=== PATIENT | female | born 1955 | race Caucasian/White ===

== ENCOUNTER → 2016-12-27 | Day surgery (SDC) | payer BC ==
[~2016-12-27] MED LIST: ATOR20TA15 PO; FOSI20TA PO; HYDR50TA3 PO; LACTATED RINGER'S 1000 ML INJ 1,000 ML ONE; LEXA10TA PO; METF1000 PO; PERC7.5T13 PO; POTA-163 PO; PROPOFOL 500 MG/50 ML BTL IV ONE; SITA25 PO
--- NOTE | 2016-12-27 09:39 | GIPROC ---
[facility] [address] [facility], [address] COLONOSCOPY PROCEDURE REPORT EXAM DATE: 12/27/2016 PATIENT NAME: Carol Mcnulty MR #: [id number] BIRTHDATE: 1955 ENDOSCOPIST: Deven Washburn MD ORDER #: [id number] [employer] TIME SALES SUPERVISOR: Ernestina Bruno RN STATUS: outpatient INDICATIONS: The patient is a 61 yr old female here for a colonoscopy due to high risk patient with personal history of colonic polyps, patient's immediate family history of colon cancer, and unexplained diarrhea PROCEDURE PERFORMED: Colonoscopy with polypectomy Colonoscopy with biopsy MEDICATIONS: None and Per Anesthesia. PREP QUALITY: good ESTIMATED BLOOD LOSS: None CONSENT: The patient understands the risks and benefits of the procedure and understands that these risks include, but are not limited to: sedation, allergic reaction, infection, perforation and/or bleeding. Alternative means of evaluation and treatment include, among others: physical exam, x-rays, and/or surgical intervention. The patient elects to proceed with this endoscopic procedure. medical equipment was checked for proper function. Hand hygiene and appropriate measures for infection prevention was taken. After the risks, benefits and alternatives of the procedure were thoroughly explained, Informed consent was verified, confirmed and timeout was successfully executed by the treatment team. A digital exam was performed and revealed no abnormalities of the rectum The EC-3890Li ([id number]) endoscope was introduced through the anus and advanced to the cecum, which was identified by both the appendix and ileocecal valve. The instrument was then slowly withdrawn as the colon was fully examined. COLON FINDINGS: The colonic mucosa appeared normal. Small polyp in the transverse colon removed by sanre. Random Bx from rectum to evaluate diarrhea. The colon mucosa was otherwise normal. Retroflexed views revealed medium internal hemorrhoids The scope was then completely withdrawn from the patient and the procedure terminated. ADVERSE EVENTS: There were no complications. IMPRESSIONS: 1. The colonic mucosa appeared normal 2. Small polyp in the transverse colon removed by sanre 3. Random Bx from rectum to evaluate diarrhea 4. The colon mucosa was otherwise normal 5. Retroflexed views revealed medium internal hemorrhoids 6. Was performed 7. Revealed no abnormalities of the rectum RECOMMENDATIONS: 1. Await biopsy results. Biopsy results will not be ready for 7-10 days. If you don't hear from us in two weeks, call our office for results. 2. Yearly hemoccult 3. High fiber diet RECALL: Return 3 years Colonoscopy Deven Washburn MD eSigned: Deven Washburn MD 12/27/2016 9:38 AM cc: PATIENT NAME: Mcnulty Carol J MR#: [id number]
--- NOTE | 2016-12-27 09:44 | GIPROC ---
[facility] [address] [facility], [address] EGD PROCEDURE REPORT EXAM DATE: 12/27/2016 PATIENT NAME: Carol Mcnulty MR #: [id number] BIRTHDATE: 1955 ATTENDING: Deven Washburn MD ORDER #: [id number] HOUSE REPAIRER: Ernestina Bruno RN STATUS: outpatient INDICATIONS: The patient is a 61 yr old female here for an EGD due to epigastric abdominal pain and unexplained diarrhea PROCEDURE PERFORMED: EGD w/ biopsy EGD snare polypectomy MEDICATIONS: None and Per Anesthesia. TOPICAL ANESTHETIC: none CONSENT: The patient understands the risks and benefits of the procedure and understands that these risks include, but are not limited to: sedation, allergic reaction, infection, perforation and/or bleeding. Alternative means of evaluation and treatment include, among others: physical exam, x-rays, and/or surgical intervention. The patient elects to proceed with this endoscopic procedure. medical equipment was checked for proper function. Hand hygiene and appropriate measures for infection prevention was taken. After the risks, benefits and alternatives of the procedure were thoroughly explained, Informed consent was verified, confirmed and timeout was successfully executed by the treatment team. The patient was anesthetized with topical anesthesia and the EC-3890Li ([id number]) endoscope was introduced through the mouth and advanced to the second portion of the duodenum. Retroflexed views revealed no abnormalities The gastroscope was then slowly withdrawn and removed. Small 8 mm polyp in the body of stomach removed by snare. Mild gastritis Bx from antrum. Random Bx from duodenum for diarrhea. The endoscopy was otherwise normal. ADVERSE EVENTS: There were no complications. IMPRESSIONS: 1. Small 8 mm polyp in the body of stomach removed by snare 2. Mild gastritis Bx from antrum 3. Random Bx from duodenum for diarrhea 4. Normal endoscopy otherwise 5. Retroflexed views revealed no abnormalities RECOMMENDATIONS: 1. Await biopsy results. Biopsy results will not be ready for 7-10 days. If you don't hear from us in two weeks, call our office for biopsy results. 2. Anti-reflux regimen 3. Continue PPI 4. Follow-up: GI clinic 3 week(s) 5. Avoid NSAIDS PATIENT CONDITION: stable DISPOSITION: Home REPEAT EXAM: Return as needed for EGD Deven Washburn MD eSigned: Deven Washburn MD 12/27/2016 9:44 AM cc: Malachi Nuñez M.D. PATIENT NAME: Carol Mcnulty MR#: [id number]
== END | disposition home or self-care (01) ==
LOC: ESDC 07:15
PROVIDERS: ATTEND Hospitalist
DX: R19.7 Diarrhea, unspecified (principal); R10.13 Epigastric pain; Z86.010 Personal history of colon polyps; Z80.0 Family history of malignant neoplasm of digestive organs; D12.3 Benign neoplasm of transverse colon; K64.8 Other hemorrhoids; K31.7 Polyp of stomach and duodenum; K29.70 Gastritis, unspecified, without bleeding
CPT/HCPCS: 00740; 00810; 43239; 43251; 45380; 45385; 88305; 88312; J3010; J7120

== ENCOUNTER 2017-04-21 08:49 | Emergency (ER) | payer BC ==
[~2017-04-21] VITALS: Ht 160 cm; Wt 100.0 kg
[~2017-04-21 08:49] MED LIST changes: -LACTATED RINGER'S 1000 ML INJ 1,000 ML ONE; -PROPOFOL 500 MG/50 ML BTL IV ONE
[2017-04-21 08:54] VITALS: BP 147/70; PULSE 67; RESP 16; TEMP 98.2; O2SAT 97
[2017-04-21] MEDS ORDERED: PROPOFOL 200 MG/20 ML AMP IV ONE (09:15)
--- NOTE | 2017-04-21 09:22 | PD ---
HPI Chief Complaint: Injury Time Seen by Provider: 09:03 Travel History International Travel<30 days: No Contact w/Intl Traveler<30days: No Traveled to known affect area: No History of Present Illness HPI This patient complains of right shoulder pain. Patient was walking her dog when the dog took off after squirrel and dragged her along for a bit before she let go of the leash. She has limited movement of the right arm. She has history of right shoulder dislocation and rotator cuff injury. Duration 1 hour. Symptoms severity is moderate. No alleviating factors. Pain is exacerbated with movement attempts. Denies headache or neck pain at this time. PFSH Past Medical History Depression: Yes High Cholesterol: Yes Diabetes: Yes Patient Takes Glucophage: Yes Hypertension: Yes Past Surgical History Eye Surgery: Yes Tonsillectomy: Yes Other Surgery: Yes (R OVARRY REMOVED, CYST REMOVED) Social History Alcohol Use: No Tobacco Use: No Substance Use: No Allergies-Medications (Allergen,Severity, Reaction): Coded Allergies: Sulfa (Sulfonamide Antibiotics) (Unverified Allergy, Unknown, 04/21/17) phenol (Unverified Allergy, Unknown, 04/21/17) phenol liquid (Unverified Allergy, Unknown, 04/21/17) Uncoded Allergies: GLUTERIDE (Allergy, Unknown, 06/30/16) Reported Meds & Prescriptions Reported Meds & Active Scripts Active Reported Lexapro (Escitalopram Oxalate) 10 Mg Tab 15 Mg PO HS Atorvastatin (Atorvastatin Calcium) 20 Mg Tab 20 Mg PO HS Januvia (Sitagliptin Phosphate) 25 Mg Tab 25 Mg PO DAILY Potassium Chloride ER (Potassium Chloride) 20 Meq Tab 20 Meq PO DAILY Metformin (Metformin HCl) 1,000 Mg Tab 1,000 Mg PO BIDPC With meals Hydrochlorothiazide 50 Mg Tab 25 Mg PO DAILY Fosinopril (Fosinopril Sodium) 20 Mg Tab 20 Mg PO DAILY Review of Systems General / Constitutional: No: Fever Eyes: No: Visual changes HENT: No: Headaches Cardiovascular: No: Chest Pain or Discomfort Respiratory: No: Shortness of Breath Gastrointestinal: No: Abdominal Pain Genitourinary: No: Dysuria Musculoskeletal: Positive: Arthralgias, Limited ROM, Pain Skin: No Rash Neurologic: No: Weakness Psychiatric: No: Depression Endocrine: No: Polydipsia Hematologic/Lymphatic: No: Easy Bruising Physical Exam Narrative GENERAL: Well-nourished, well-developed patient with right shoulder pain . SKIN: Focused skin assessment reveals no rash and nodules. Skin is Warm and dry. HEAD: Atraumatic. Normocephalic. EYES: Pupils equal and round. No scleral icterus. No injection or drainage. ENT: No nasal bleeding or discharge. Mucous membranes pink and moist. NECK: Trachea midline. No JVD. CARDIOVASCULAR: Regular rate and rhythm. No murmur appreciated. RESPIRATORY: No accessory muscle use. Clear to auscultation. Breath sounds equal bilaterally. GASTROINTESTINAL: Abdomen soft, non-tender, nondistended. Hepatic and splenic margins not palpable. MUSCULOSKELETAL: Right humeral head seems displaced. Decreased range of motion of right shoulder. No bruising or open wound. Pulse and sensation and capillary refill right arm intact. No clubbing. No cyanosis. No edema. NEUROLOGICAL: Awake and alert. No obvious cranial nerve deficits. Motor grossly within normal limits. Normal speech. PSYCHIATRIC: Appropriate mood and affect; insight and judgment normal. Data Data Last Documented VS Vital Signs Date Time Temp Pulse Resp B/P (MAP) Pulse Ox O2 Delivery O2 Flow Rate FiO2 04/21/17 10:18 63 20 151/78 (102) 96 04/21/17 08:54 98.2 Orders Orders Iv Access Insert/Monitor (04/21/17 09:15) Splint Or Brace Apply/Monitor (04/21/17 09:15) Hydrometeorological Technician / Telemetry TONY.Q8H (04/21/17 09:15) Oximetry (04/21/17 09:15) Oxygen Administration (04/21/17 09:15) Propofol 200 Mg/20 Ml Inj (Diprivan 200 (04/21/17 09:15) Shoulder, Limited(2vws) (04/21/17 ) MDM Medical Decision Making Medical Screen Exam Complete: Yes Emergency Medical Condition: Yes Medical Record Reviewed: Yes Differential Diagnosis Shoulder dislocation, humerus fracture, contusion Narrative Course I have reviewed the patient's electronic medical record. Patient has history of prior dislocation and rotator cuff injury I reviewed her right shoulder x-rays which show a fracture of the proximal humerus but no dislocation Placed her in a sling I offered her pain medication but she declines She has an orthopedist she will call when she gets home for follow-up Advised her to ice and rest it Diagnosis Primary Impression: Closed right humeral fracture Qualified Codes: S42.354A - Nondisplaced comminuted fracture of shaft of humerus, right arm, initial encounter for closed fracture Additional Instructions: The patient was advised to follow up with their orthopedist and return if they worsen. Wear sling Apply ice to right shoulder Med/Other Pt SpecificInfo: Other Disposition: 01 DISCHARGE HOME Condition: Stable Horace Templeton MD Apr 21, 2017 09:22
[2017-04-21 09:42] VITALS: O2SAT 99
--- NOTE | 2017-04-21 09:48 | RADRPT ---
EXAM DATE/TIME: 04/21/2017 09:24 [place] COMPARISON: No previous studies available for comparison. INDICATIONS : Right shoulder pain post fall while walking dog. MEDICAL HISTORY : Hypercholesterolemia. Hypertension Diabetic. Right rotator cuff tear. SURGICAL HISTORY : Tonsillectomy. Right ovary removed ENCOUNTER: Initial ACUITY: 1 day PAIN SCORE: 10/10 LOCATION: Right shoulder FINDINGS: 2 views of the right shoulder. There is a mildly comminuted fracture of the proximal right humerus in volving the surgical neck and greater tuberosity. Displacement is less than 1 cm. No significant angu lation identified. Bone alignment at the glenohumeral joint within normal limits. Minimal hypertrophi c change of the acromioclavicular joint. CONCLUSION: Mildly comminuted proximal humeral fracture. Alexi Stevens MD on April 21, 2017 at 9:46 Board Certified Radiologist. This report was verified electronically.
[2017-04-21 10:18] VITALS: BP 151/78; PULSE 63; RESP 20; O2SAT 96
== END 2017-04-21 10:38 | disposition home or self-care (01) ==
LOC: PHED 08:49
DX: S42.354A Nondisplaced comminuted fracture of shaft of humerus, right arm, initial encounter for closed fracture (principal); W18.39XA Other fall on same level, initial encounter; Y93.K1 Activity, walking an animal
CPT/HCPCS: 73030; 99284

== ENCOUNTER 2018-02-24 07:41 | Inpatient (IN) ==
[2018-02-24] MEDS ORDERED: Morphine Inj 4 MG/ML Vial IV.PUSH ONE (08:20)
--- NOTE | 2018-02-24 08:25 | ED ---
HPI General Chief complaint: Abdominal Pain Stated complaint: Vomiting/diarrhea/abd pain x 1 day Time Seen by Provider: 02/24/18 08:17 Source: patient Mode of arrival: ambulatory Limitations: no limitations History of Present Illness HPI narrative: 62yo M with PMH of DM presents to the ED with c/o abdominal pain since yesterday. Pain is diffuse but more left lower abdomen. It is dull and sharp. Constant. Moderate severity. Associated with nausea, vomiting and nonbloody diarrhea. Denies any fever, chest pain, sob. PSH cholecystectomy and right oopherectomy. Related Data Home Medications Medication Instructions Recorded Confirmed atorvastatin 20 mg PO HS 02/24/18 02/24/18 escitalopram oxalate [Lexapro] 15 mg PO DAILY 02/24/18 02/24/18 hydrochlorothiazide 25 mg PO DAILY 02/24/18 02/24/18 lisinopril 15 mg PO HS 02/24/18 02/24/18 metformin 1,000 mg PO BID 02/24/18 02/24/18 potassium chloride 30 meq PO DAILY 02/24/18 02/24/18 sitagliptin [Januvia] 50 mg PO DAILY 02/24/18 02/24/18 Allergies Allergy/AdvReac Type Severity Reaction Status Date / Time phenol Allergy Severe throat Verified 02/24/18 07:55 swelling phenol liquid Allergy Severe throat Verified 02/24/18 07:55 swelling Sulfa (Sulfonamide Allergy Severe Rash, Verified 02/24/18 07:55 Antibiotics) Generalized GLUTERIDE Allergy Severe throat Uncoded 02/24/18 07:55 swelling Review of Systems ROS Unobtainable All other systems reviewed negative except as stated in HPI [facility] Medical History Medical History Diabetes (Acute) High cholesterol (Acute) Hypertension (Acute) Surgical History Surgical History Hx laparoscopic cholecystectomy (Acute) Hx of removal of ovary (Acute) Hx of tonsillectomy (Acute) Social History Social History Substance History: No History of Abuse Second Hand Smoke Exposure: No Smoking Status: Never smoker How Often Do You Have a Drink Containing Alcohol: Never Recent Travel in [facility] within the Last 8 Weeks: No Recent Out of Country Travel within the Last 8 Weeks: No Exam Narrative Exam Narrative: GENERAL: 62yo F in mild distress. SKIN: Focused skin assessment warm/dry. HEAD: Atraumatic. Normocephalic. EYES: Pupils equal and round. No scleral icterus. No injection or drainage. CARDIOVASCULAR: Regular rate and rhythm. No murmur appreciated. RESPIRATORY: No accessory muscle use. Clear to auscultation. Breath sounds equal bilaterally. GASTROINTESTINAL: Abdomen soft, +TTP LLQ. Mild discomfort diffusely. No rebound tenderness or guarding. MUSCULOSKELETAL: No obvious deformities. No clubbing. No cyanosis. No edema. NEUROLOGICAL: Awake and alert. No obvious cranial nerve deficits. Motor grossly within normal limits. Normal speech. PSYCHIATRIC: Appropriate mood and affect; insight and judgment normal. Course Initial Documented Vital Signs Temperature 97.8 F 02/24/18 07:50 Pulse Rate 89 02/24/18 07:50 Respiratory Rate 16 02/24/18 07:50 Blood Pressure 118/62 02/24/18 07:50 Pulse Oximetry 94 L 02/24/18 07:50 Last Documented Vital Signs Temperature 97.8 F 02/24/18 07:50 Pulse Rate 77 02/24/18 09:53 Respiratory Rate 18 02/24/18 09:53 Blood Pressure 122/66 02/24/18 09:53 Pulse Oximetry 96 02/24/18 09:53 Medical Decision Making [facility] Narrative Medical decision making narrative: 62yo F with abdominal pain since yesterday. Labs reviewed, WBC 11.3. 89.5% neutrophil. H/H normal. Creatinine at higher end of normal at 1.30. Glucose mildly elevated at 183. UA showed negative leukocyte. Trace ketone. CT a/p showed marked inflammatory changes about 2 adjacent mid small bowel diverticula indicating small bowel diverticulitis. There is an air fluid level and debris within one fo the diverticulum indicating possible small abscess formation. Measures 1.5cm in diameter. Pt is well appearing but given this finding, will cover with antibiotics and admit and observe if intervention is needed. Discussed with Dr. Kennedy and accepted to his service. Differential Diagnosis Differential Diagnosis: Gastroenteritis vs. diverticulitis vs. UTI Lab Data Result diagrams: 02/24/18 08:22 02/24/18 08:22 Lab Results 02/24/18 02/24/18 02/24/18 Range/Units 08:15 08:22 08:22 CBC w Diff Auto diff final WBC 11.3 H (4.0-11.0) th/mm3 RBC 4.24 (4.00-5.30) mil/mm3 Hgb 12.5 (11.6-15.3) gm/dL Hct 38.6 (35.0-46.0) % MCV 90.9 (80.0-100.0) fL MCH 29.4 (27.0-34.0) pg MCHC 32.3 (32.0-36.0) % RDW 14.1 (11.6-17.2) % Plt Count 152 (150-450) th/mm3 MPV 10.8 (7.0-11.0) fL Neut % (Auto) 89.5 H (16.0-70.0) % Lymph % (Auto) 4.7 L (9.0-44.0) % Christian % (Auto) 4.9 (0.0-8.0) % Eos % (Auto) 0.7 (0.0-4.0) % Baso % (Auto) 0.2 (0.0-2.0) % Neut # (Auto) 10.1 H (1.8-7.7) th/mm3 Lymph # (Auto) 0.5 L (1.0-4.8) th/mm3 Christian # (Auto) 0.6 (0.0-0.9) th/mm3 Eos # (Auto) 0.1 (0.0-0.4) th/mm3 Baso # (Auto) 0.0 (0.0-0.2) th/mm3 WBC Differential . Differential Comment . Sodium 137 (136-145) meq/L Potassium 4.3 (3.5-5.1) meq/L Chloride 103 (98-107) meq/L Carbon Dioxide 25.1 (21.0-32.0) meq/L Anion Gap 9 (5-15) meq/L BUN 19 H (7-18) mg/dL Creatinine 1.30 H (0.50-1.00) mg/dL Estimated GFR 41 L (>89) mL/min Random Glucose 183 H (74-106) mg/dL Calcium 9.1 (8.5-10.1) mg/dL Total Bilirubin 0.7 (0.2-1.0) mg/dL AST 12 L (15-37) U/L ALT 27 (10-53) U/L Alkaline Phosphatase 99 (45-117) U/L Total Protein 7.2 (6.4-8.2) g/dL Albumin 3.7 (3.4-5.0) g/dL Lipase 219 (73-393) U/L Ur Collection Type Clean catch Urine Color Yellow (Yellw/Straw) Urine Clarity Clear (Clear) Urine pH 6.0 (5.0-8.5) Ur Specific [place] Greater/equal 1.030 (1.002-1.035) Urine Protein 30 H (Neg-Trace) mg/dL Urine Glucose (UA) Negative (Negative) mg/dL Urine Ketones Trace H (Negative) mg/dL Urine Occult Blood Negative (Negative) Urine Nitrate Negative (Negative) Urine Bilirubin Negative (Negative) Urine Urobilinogen 1.0 (Less than 2) mg/dL Ur Leukocyte Esterase Negative (Negative) Urine WBC 0-5 (0-5) /hpf Ur Squamous Epith Cells 6-8 (0-5) /hpf Urine Mucus Moderate H (Occasional) /lpf Micro UA Comment Culture not ind Urine Culture Comments Culture not ind Imaging Data Radiologist's impression: Abdomen/Pelvis CT 02/24/18 08:20 CONCLUSION: 1. Marked inflammatory changes about 2 adjacent mid small bowel diverticula indicating small bowel diverticulitis. There is an air-fluid level and debris within one of the diverticulum indicating possible small abscess formation. It measures approximately 1.5 cm in diameter. No evidence of free air or free fluid. 2. Status post cholecystectomy. Discharge Plan Discharge Disposition Patient Disposition: 30 Still Patient Physicians Team ED Provider: Nathaly Moreno Primary Care Provider: NON STAFF,PROVIDER Rxs /Orders / Referrals /Forms Prescriptions: No Action potassium chloride 10 mEq Capsule, Extended Release 30 meq PO DAILY RF: 0 atorvastatin 20 mg Tablet 20 mg PO HS RF: 0 metformin 1,000 mg Tablet 1,000 mg PO BID RF: 0 lisinopril 10 mg Tablet 15 mg PO HS RF: 0 hydrochlorothiazide 25 mg Tablet 25 mg PO DAILY RF: 0 escitalopram oxalate [Lexapro] 10 mg Tablet 15 mg PO DAILY RF: 0 sitagliptin [Januvia] 50 mg Tablet 50 mg PO DAILY RF: 0 Discharge Interventions Interventions: Vital Signs Last Done: 02/24/18 09:53 Status ED Status: With Doctor
[2018-02-24 08:35] LABS: Bilirubin,Urine Negative (Negative); Clarity,Urine Clear (Clear); Color,Urine Yellow (Yellw/Straw); Glucose,Urine (UA) Negative (Negative); Leukocyte Esterase,Urine Negative (Negative); Nitrite,Urine Negative (Negative); Specific Gravity,Urine Greater/Equal 1.030 (1.002-1.035)
[2018-02-24 08:42] LABS: Baso % (Auto) 0.2 % (0.0-2.0); Eos # (Auto) 0.1 th/mm3 (0.0-0.4); Eos % (Auto) 0.7 % (0.0-4.0); Hematocrit 38.6 % (35.0-46.0); Hemoglobin 12.5 gm/dL (11.6-15.3); Lymph # (Auto) 0.5 th/mm3 (1.0-4.8); Lymph % (Auto) 4.7 % (9.0-44.0); Mean Corpuscular HGB Conc 32.3 % (32.0-36.0); Mean Corpuscular Hemoglobin 29.4 pg (27.0-34.0); Mean Corpuscular Volume 90.9 fL (80.0-100.0); Mean Platelet Volume 10.8 fL (7.0-11.0); Mono # (Auto) 0.6 th/mm3 (0.0-0.9); Mono % (Auto) 4.9 % (0.0-8.0); Neut # (Auto) 10.1 th/mm3 (1.8-7.7); Neut % (Auto) 89.5 % (16.0-70.0); Platelet Count 152 th/mm3 (150-450); Red Blood Count 4.24 mil/mm3 (4.00-5.30); Red Cell Distribution Width 14.1 % (11.6-17.2); White Blood Count 11.3 th/mm3 (4.0-11.0)
[2018-02-24 08:43] LABS: Mucus,Urine Moderate /lpf (Occasional); WBC,Urine 0-5 /hpf (0-5)
[2018-02-24 08:49] LABS: Chloride 103 meq/L (98-107); Potassium 4.3 meq/L (3.5-5.1); Sodium 137 meq/L (136-145)
[2018-02-24 08:52] LABS: Calcium 9.1 mg/dL (8.5-10.1)
[2018-02-24 08:53] LABS: Albumin 3.7 g/dL (3.4-5.0); Anion Gap 9 meq/L (5-15); Blood Urea Nitrogen 19 mg/dL (7-18); Carbon Dioxide 25.1 meq/L (21.0-32.0); Glucose,Random 183 mg/dL (74-106); Lipase 219 U/L (73-393)
[2018-02-24 08:56] LABS: Alanine Aminotransferase 27 U/L (10-53); Aspartate Aminotransferase 12 U/L (15-37); Glomerular Filtration Rate 41 mL/min (>89)
[2018-02-24 08:57] LABS: Total Protein 7.2 g/dL (6.4-8.2)
[2018-02-24 08:59] LABS: Alkaline Phosphatase 99 U/L (45-117)
--- NOTE | 2018-02-24 09:55 | CT ---
EXAM DATE: 02/24/2018 9:22 AM EDT AGE/SEX: 62 years / Female INDICATIONS: Diffuse abdominal pain, worse on the left. Nausea, vomiting and diarrhea. CLINICAL DATA: This is the patient's initial encounter. Patient reports that signs and symptoms have been present for 1 day and indicates a pain score of 7/10. MEDICAL/SURGICAL HISTORY: Diabetes. Hypertension. Cholecystectomy. Oophorectomy. ORAL CONTRAST: No oral contrast ingested. RADIATION DOSE: 20.69 CTDI (mGy) COMPARISON: No prior exams available for comparison. TECHNIQUE: Multiple contiguous axial images were obtained through the abdomen and pelvis following b olus infusion of 80 ml Omnipaque 350 (iohexol) nonionic water-soluble contrast as a single exam dos e. No oral contrast ingested. Using automated exposure control and adjustment of the mA and/or kV ac cording to patient size, radiation dose was kept as low as reasonably achievable to obtain optimal di agnostic quality images. DICOM format image data is available electronically for review and comparis on. FINDINGS: Lower Lungs: The visualized lower lungs are clear. Liver: Homogeneous and within normal limits. Cholecystectomy clips are seen in the gallbladder fossa. Spleen: Small calcification noted laterally. Otherwise unremarkable. Pancreas: Unremarkable without mass or calcification. Kidneys: 1.2 cm cyst in the anterior midpole. No evidence of hydronephrosis. Adrenal Glands: Unremarkable. Aorta: The aorta and proximal iliac vessels are grossly unremarkable without aneurysmal dilation. Bowel/Mesentery: 2 adjacent small bowel diverticula are seen in the mid abdomen at the level of the distal jejunum/proximal ileum. Each measures approximately 1.5 cm in diameter. There is prominent essie rounding stranding in the mesenteric fat indicating inflammatory change. There is an air-fluid level and mildly mottled appearance in one of the diverticula. No evidence of bowel dilatation. No free air or free fluid. Appendix not identified. Abdominal Wall: Intact. Retroperitoneum: No evidence of adenopathy in the retrocrural, para-aortic, or deep pelvic regions. Bladder: Contours are smooth. Reproductive Organs: No abnormal masses or calcifications seen. Inguinal: The inguinal region is unremarkable without evidence of adenopathy. Bony Structures: Unremarkable. CONCLUSION: 1. Marked inflammatory changes about 2 adjacent mid small bowel diverticula indicating small bowel d iverticulitis. There is an air-fluid level and debris within one of the diverticulum indicating possi ble small abscess formation. It measures approximately 1.5 cm in diameter. No evidence of free air or free fluid. 2. Status post cholecystectomy. Electronically signed by: Alexi Stevens MD 02/24/2018 9:54 AM EDT
[2018-02-24] MEDS ORDERED: Ciprofloxacin 400 MG/200 ML 400 MG/200 ML PIGGYBACK IV.SIG ONE (10:09)
[2018-02-24] MEDS ORDERED: metroNIDAZOLE 500 MG Tablet PO ONE (10:09)
[2018-02-24] MEDS ORDERED: Temazepam 15 MG Capsule PO PRN (10:40)
[2018-02-24] MEDS ORDERED: Acetaminophen 325 MG Tablet PO PRN (10:40)
[2018-02-24] MEDS ORDERED: Dextrose 50% in Water 50 ML Vial IV.PUSH PRN (10:44)
--- NOTE | 2018-02-24 11:58 | P.HP ---
History of Present Illness Primary Care Physician: PROVIDER NON STAFF Chief Complaint: Abdominal pain, nausea, vomiting, diarrhea History of Present Illness: 62-year-old female with known history of hypertension, hyperlipidemia , diabetes, history of diverticulitis as a child who presented to the emergency department because of persistent abdominal pain. Patient states that she has normal state of health until yesterday morning after he took a shower. She started developing abdominal pain throughout her entire abdomen. She had nausea , vomiting and then subsequently diarrhea. Patient states that remained throughout the day. She was able to eat some chicken last night, however she still had persistent diarrhea. She indicates the pain was diffuse with worsening over on the left side. She describes the pain as a constant ache with intermittent stabbing type pain which she compared to gas pains. Which the persistent pain is a 4/10 on a pain scale and the intermittent stabbing pain got to an 8/10 on a pain scale. Nothing relieves her pain and because it was persistent she came to emergency department for evaluation. Patient had workup done and found to have a small bowel diverticular abscess and was recommended admission the hospital for further evaluation and management. - Diagnosis (1) Diverticular disease of small intestine (2) Acute kidney injury Inpatient Certification: I certify that the inpatient services were ordered in accordance with Medicare regulations governing the order. This includes certification that hospital inpatient services are reasonable and necessary and in the case of services not specified as inpatient-only under 42 CFR 419.22(n), that they are appropriately provided as inpatient services in accordance to with the 2-midnight benchmark under 43 CFR 412.3(e) Estimated Total Length of Stay (Days): 3 Plans for Post Hospital Care: Not yet determined Review of Systems All other systems reviewed negative except as stated in HPI Gastrointestinal: Reports abdominal pain, Reports loose stools, Reports nausea, Reports vomiting PMFSH - History History Provided By: Patient - Medical History Medical History: Medical History (Last Updated 02/24/18 @ 11:52 by NICOLE Pollard) Diabetes High cholesterol History of diverticulitis Hypertension - Surgical History Surgical History: Surgical History (Last Reviewed 02/24/18 @ 11:46 by NCIOLE Pollard) History of arthroscopic knee surgery Hx laparoscopic cholecystectomy Hx of removal of ovary Hx of tonsillectomy - Family History Family History: Family History (Last Updated 02/24/18 @ 11:49 by NICOLE Pollard) Father History of heart disease History of diabetes mellitus Mother History of heart disease History of diabetes mellitus - Tobacco History Second Hand Smoke Exposure: No Smoking Status: Never smoker - Alcohol History How Often Do You Have a Drink Containing Alcohol: Never - Substance Use History Substance History: No History of Abuse - Travel History Recent Travel in the [place] Within the Last 8 Weeks: No Recent Travel Out of the Country Within the Last 8 Weeks: No - Immunization History Tetanus Immunization: Unsure Hx Influenza Vaccine This Season: No Medications and Allergies Active Medications: Active Medications Acetaminophen (Tylenol) 650 mg PO Q4H PRN PRN Reason: Temp > 100.4 Atorvastatin Calcium (Lipitor) 20 mg PO HS VINAY Dextrose (D50w Vial) 50 ml IV.PUSH UNSCH PRN PRN Reason: PER HYPOGLYCEMIA PROTOCOL Escitalopram Oxalate (Lexapro) 15 mg PO DAILY VINAY Glucagon (Glucagon Inj) 1 mg OTHER PRN PRN PRN Reason: for Hypoglycemia Protocol Heparin Sodium (Porcine) (Heparin Inj) 5,000 units SQ Q12HR VINAY Hydrochlorothiazide (Hydrodiuril) 25 mg PO DAILY VINAY Lactated Ringer's (Lr 1000 Ml Inj) 1,000 mls @ 100 mls/hr IV.CONT .Q10H VINAY Piperacillin/Tazobactam/Dextrose (Zosyn 3.375 Gm Premix) 50 mls @ 100 mls/hr IV.SIG Q6H VINAY Insulin Aspart (Novolog Insulin Correctional Sugar Inj) 0 unit SQ ACHS VINAY; Protocol Lisinopril (Prinivil) 15 mg PO HS VINAY Sodium Chloride (Ns Flush) 2 ml IV.FLUSH PRN PRN PRN Reason: FLUSH AFTER USING IV ACCESS Last Admin: 02/24/18 08:37 Dose: 2 ml Temazepam (Restoril) 15 mg PO HS PRN PRN Reason: INSOMNIA Allergies Allergy/AdvReac Type Severity Reaction Status Date / Time phenol Allergy Severe throat Verified 02/24/18 07:55 swelling phenol liquid Allergy Severe throat Verified 02/24/18 07:55 swelling Sulfa (Sulfonamide Allergy Severe Rash, Verified 02/24/18 07:55 Antibiotics) Generalized GLUTERIDE Allergy Severe throat Uncoded 02/24/18 07:55 swelling Home Medications Medication Instructions Recorded Confirmed Type RX: atorvastatin 20 mg PO HS 02/24/18 02/24/18 History RX: hydrochlorothiazide 25 mg PO DAILY 02/24/18 02/24/18 History RX: lisinopril 15 mg PO HS 02/24/18 02/24/18 History RX: metformin 1,000 mg PO BID 02/24/18 02/24/18 History RX: potassium chloride 30 meq PO DAILY 02/24/18 02/24/18 History escitalopram oxalate [Lexapro] 15 mg PO DAILY 02/24/18 02/24/18 History sitagliptin [Januvia] 50 mg PO DAILY 02/24/18 02/24/18 History Exam Vital signs: Vital Signs 02/24/18 07:50 02/24/18 08:24 02/24/18 08:28 Temperature 97.8 F Pulse Rate 89 90 Respiratory Rate 16 17 Blood Pressure 118/62 143/77 H Pulse Oximetry 94 L 98 98 02/24/18 09:53 02/24/18 10:40 Temperature Pulse Rate 77 71 Respiratory Rate 18 18 Blood Pressure 122/66 135/73 Pulse Oximetry 96 96 Intake & Output 02/23/18 02/24/18 02/24/18 18:59 06:59 18:59 Weight 100.4 kg Narrative: GENERAL: Well-developed, well-nourished, in no acute distress. alert and orientated HEENT: Head is normocephalic without any lesions or masses noted. Facial features are symmetric. Eyes: Pupils equal round reactive to light. Extraocular muscles are intact. Conjunctivae were clear. Oropharyngeal: Pharynx without any erythema edema. Tongue is midline without deviation. Buccal mucosa is moist without any masses or lesions NECK: Supple without any masses. Trachea midline no deviation. No JVD, no bruits are appreciated CARDIAC: Regular rhythm, regular rate. S1/S2 are heard. No murmurs gallops or rubs. LUNGS: Clear to auscultation bilaterally. No wheeze, rhonchi or rales. No use of accessory muscles on inspiration or expiration. ABDOMEN: Soft, mild tenderness noted throughout the abdomen, pain worse on the left side. Nondistended. Bowel sounds heard in all 4 quadrants. No organomegaly or masses. Negative rebound, negative guarding EXTREMITIES: No edema, pulses are equal bilaterally. No cyanosis or clubbing NEUROLOGY: Mood and affect appear appropriate. Cranial nerves II through XII grossly intact. Muscle strength 5/5 in upper and lower extremities bilaterally. Deep tendon reflexes are 2+ in upper and lower extremities bilaterally. Results - Labs CBC & Chem 7: 02/24/18 08:22 02/24/18 08:22 Labs: Laboratory Results - last 24 hr 02/24/18 02/24/18 02/24/18 08:15 08:22 08:22 CBC w Diff Auto diff final WBC 11.3 H RBC 4.24 Hgb 12.5 Hct 38.6 MCV 90.9 MCH 29.4 MCHC 32.3 RDW 14.1 Plt Count 152 MPV 10.8 Neut % (Auto) 89.5 H Lymph % (Auto) 4.7 L [place] % (Auto) 4.9 Eos % (Auto) 0.7 Baso % (Auto) 0.2 Neut # (Auto) 10.1 H Lymph # (Auto) 0.5 L [place] # (Auto) 0.6 Eos # (Auto) 0.1 Baso # (Auto) 0.0 WBC Differential . Differential Comment . Sodium 137 Potassium 4.3 Chloride 103 Carbon Dioxide 25.1 Anion Gap 9 BUN 19 H Creatinine 1.30 H Estimated GFR 41 L POC Glucose Random Glucose 183 H Calcium 9.1 Total Bilirubin 0.7 AST 12 L ALT 27 Alkaline Phosphatase 99 Total Protein 7.2 Albumin 3.7 Lipase 219 Ur Collection Type Clean catch Urine Color Yellow Urine Clarity Clear Urine pH 6.0 Ur Specific [place] Greater/equal 1.030 Urine Protein 30 H Urine Glucose (UA) Negative Urine Ketones Trace H Urine Occult Blood Negative Urine Nitrate Negative Urine Bilirubin Negative Urine Urobilinogen 1.0 Ur Leukocyte Esterase Negative Urine WBC 0-5 Ur Squamous Epith Cells 6-8 Urine Mucus Moderate H Micro UA Comment Culture not ind Urine Culture Comments Culture not ind 02/24/18 11:01 CBC w Diff WBC RBC Hgb Hct MCV MCH MCHC RDW Plt Count MPV Neut % (Auto) Lymph % (Auto) [place] % (Auto) Eos % (Auto) Baso % (Auto) Neut # (Auto) Lymph # (Auto) [place] # (Auto) Eos # (Auto) Baso # (Auto) WBC Differential Differential Comment Sodium Potassium Chloride Carbon Dioxide Anion Gap BUN Creatinine Estimated GFR POC Glucose 130 H Random Glucose Calcium Total Bilirubin AST ALT Alkaline Phosphatase Total Protein Albumin Lipase Ur Collection Type Urine Color Urine Clarity Urine pH Ur Specific [place] Urine Protein Urine Glucose (UA) Urine Ketones Urine Occult Blood Urine Nitrate Urine Bilirubin Urine Urobilinogen Ur Leukocyte Esterase Urine WBC Ur Squamous Epith Cells Urine Mucus Micro UA Comment Urine Culture Comments - Imaging Impressions Abdomen/Pelvis CT 02/24/18 08:20 CONCLUSION: 1. Marked inflammatory changes about 2 adjacent mid small bowel diverticula indicating small bowel diverticulitis. There is an air-fluid level and debris within one of the diverticulum indicating possible small abscess formation. It measures approximately 1.5 cm in diameter. No evidence of free air or free fluid. 2. Status post cholecystectomy. Caprini VTE Risk Assessment Caprini VTE Risk Assessment: Moderate/High Risk (score >= 2) Caprini Risk Assessment Model: Point Value = 1 Point Value = 2 Point Value = 3 Point Value = 5 Age 41-60 Minor surgery BMI > 25 kg/m2 Swollen legs Varicose veins or History of unexplained or recurrent spontaneous Oral contraceptives or hormone replacement Sepsis (< 1 month) Serious lung disease, including pneumonia (< 1 month) Abnormal pulmonary function Acute myocardial infarction Congestive heart failure (< 1 month) History of inflammatory bowel disease Medical patient at bed rest Age 61-74 Arthroscopic surgery Major open surgery (> 45 min) Laparoscopic surgery (> 45 min) Malignancy Confined to bed (> 72 hours) Immobilizing plaster cast Central venous access Age >= 75 History of VTE Family history of VTE Factor V Leiden Prothrombin [id number] Lupus anticoagulant Anticardiolipin antibodies Elevated serum homocysteine Heparin-induced thrombocytopenia Other congenital or acquired thrombophilia Stroke (< 1 month) Elective arthroplasty Hip, pelvis, or leg fracture Acute spinal cord injury (< 1 month) Prophylaxis Regimen: Total Risk Factor Score Risk Level Prophylaxis Regimen 0-1 Low Early ambulation 2 Moderate Order ONE of the following: *Sequential Compression Device (SCD) *Heparin 5000 units SQ BID 3-4 Higher Order ONE of the following medications: *Heparin 5000 units SQ TID *Enoxaparin/Lovenox 40 mg SQ daily (WT < 150 kg, CrCl > 30 mL/min) *Enoxaparin/Lovenox 30 mg SQ daily (WT < 150 kg, CrCl > 10-29 mL/min) *Enoxaparin/Lovenox 30 mg SQ BID (WT < 150 kg, CrCl > 30 mL/min) AND/OR *Sequential Compression Device (SCD) 5 or more Highest Order ONE of the following medications: *Heparin 5000 units SQ TID (Preferred with Epidurals) *Enoxaparin/Lovenox 40 mg SQ daily (WT < 150 kg, CrCl > 30 mL/min) *Enoxaparin/Lovenox 30 mg SQ daily (WT < 150 kg, CrCl > 10-29 mL/min) *Enoxaparin/Lovenox 30 mg SQ BID (WT < 150 kg, CrCl > 30 mL/min) AND *Sequential Compression Device (SCD) Assessment and Plan - Assessment (1) Diverticular disease of small intestine Code(s): K57.10 - Diverticulosis of small intestine without perforation or abscess without bleeding Status: Acute (2) Acute kidney injury Code(s): N17.9 - Acute kidney failure, unspecified Status: Acute - Plan 62-year-old female who presented to the hospital because of persistent abdominal pain with associated nausea, vomiting, diarrhea Diverticular abscess of the small bowel -CT scan does show couple small bowel diverticulum, one with air-fluid level suggestive of abscess -Patient will be kept n.p.o. except for meds -Continue IV fluids -Patient started on Zosyn for empirical antibiotic coverage -Continue pain control -General surgery consultation for recommendation Acute kidney injury -Likely secondary to dehydration, nausea, vomiting, diarrhea, however chronic kidney disease is also a possibility with the patient having diabetes and hypertension. -Continue monitor renal function -Avoid nephrotoxins Hypertension, hyper lipidemia -Home medication has been continued Diabetes -Accu-Cheks with sliding scale insulin DVT prevention -Subcutaneous heparin Discussed Condition With: Patient, nursing staff, Dr. Kennedy
[2018-02-24] MEDS: Heparin - SQ 10,000 UNITS/ML Vial SQ SCH ×2 (12:03→21:57)
[2018-02-24] MEDS: Piperacil/Tazo 3.375 GM Premix 50 ML IV.SIG SCH ×3 (12:04→23:34)
[2018-02-24] MEDS: Insulin NovoLOG Aspart Correctional Sugar Inj SQ SCH ×3 (13:20→22:03)
[2018-02-24] MEDS: Morphine Inj 4 MG/ML Vial IV.PUSH PRN ×2 (13:22→22:01)
[2018-02-24] MEDS ORDERED: Lisinopril 5 MG Tablet PO SCH (21:00)
[2018-02-24] MEDS: Escitalopram 10 MG Tablet PO SCH (22:00)
[2018-02-25 08:21] LABS: Potassium 3.7 meq/L (3.5-5.1)
[2018-02-25 08:25] LABS: Calcium 8.7 mg/dL (8.5-10.1)
[2018-02-25 08:26] LABS: Carbon Dioxide 29.8 meq/L (21.0-32.0)
[2018-02-25 08:30] LABS: Baso % (Auto) 0.2 % (0.0-2.0); Eos # (Auto) 0.1 th/mm3 (0.0-0.4); Eos % (Auto) 1.4 % (0.0-4.0); Hematocrit 35.9 % (35.0-46.0); Hemoglobin 11.4 gm/dL (11.6-15.3); Lymph # (Auto) 0.6 th/mm3 (1.0-4.8); Mean Corpuscular HGB Conc 31.9 % (32.0-36.0); Mean Corpuscular Volume 90.9 fL (80.0-100.0); Mean Platelet Volume 11.1 fL (7.0-11.0); Mono # (Auto) 0.6 th/mm3 (0.0-0.9); Mono % (Auto) 7.7 % (0.0-8.0); Neut # (Auto) 6.3 th/mm3 (1.8-7.7); Neut % (Auto) 82.7 % (16.0-70.0); Platelet Count 134 th/mm3 (150-450); Red Blood Count 3.94 mil/mm3 (4.00-5.30); Red Cell Distribution Width 13.9 % (11.6-17.2); White Blood Count 7.6 th/mm3 (4.0-11.0)
[2018-02-25] MEDS ORDERED: Escitalopram 10 MG Tablet PO SCH (09:00)
[2018-02-25] MEDS: Piperacil/Tazo 3.375 GM Premix 50 ML IV.SIG SCH ×2 (10:20→18:37)
[2018-02-25] MEDS: hydroCHLOROthiazide 25 MG Tablet PO SCH (10:21)
[2018-02-25] MEDS: Heparin - SQ 10,000 UNITS/ML Vial SQ SCH ×2 (10:21→23:48)
[2018-02-25] MEDS: Insulin NovoLOG Aspart Correctional Sugar Inj SQ SCH ×3 (10:21→21:29)
[2018-02-25] MEDS ORDERED: Lisinopril 5 MG Tablet PO SCH (10:35)
--- NOTE | 2018-02-25 10:41 | P.PN ---
Subjective Interval history: 62-year-old female who is seen today in follow-up for small bowel diverticular abscess. She states that she is feeling much better. Has not required any pain medication since 9 PM last night. States that her appetite is improving in requesting if her diet can be advanced. Vital signs remained stable. Patient is afebrile. Physical Exam Vital signs: Vital Signs 02/24/18 10:40 02/24/18 12:00 02/24/18 16:00 Temperature 98.4 F 99.8 F H Pulse Rate 71 72 75 Respiratory Rate 18 18 18 Blood Pressure 135/73 137/78 99/53 L Pulse Oximetry 96 96 96 02/24/18 20:00 02/24/18 23:01 02/25/18 00:00 Temperature 99.8 F H 99 F Pulse Rate 69 74 Respiratory Rate 20 20 20 Blood Pressure 127/60 142/70 H Pulse Oximetry 94 L 94 L 02/25/18 08:00 Temperature 98.7 F Pulse Rate 76 Respiratory Rate 18 Blood Pressure 132/65 Pulse Oximetry 95 Intake & Output 02/24/18 02/25/18 02/25/18 18:59 06:59 18:59 Intake Total 300 / 300 2049 Balance 300 / 300 2049 Weight 100.4 kg 100.9 kg Intake: IV 300 / 300 2049 LR 1000 mL Inj 1,000 ML @ 100 2000 / 2000 mls/hr IV.CONT .Q10H VINAY Rx#: [id number] Cipro 400 MG/200 ML Inj 400 mg 200 / 200 In 200 ml @ 200 mls/hr IV.SIG ONCE ONE Rx#:[id number] Zosyn 3.375 GM Premix 50 ML @ 100 / 100 50 / 50 100 mls/hr IV.SIG Q6H VINAY Rx#: [id number] Oral 0 / 0 0 / 0 Other: # Voids 2 3 Date of Last Bowel Movement 02/24/18 # Bowel Movements 0 Narrative: GENERAL: Well-developed, well-nourished, in no acute distress. alert and orientated HEENT: Head is normocephalic without any lesions or masses noted. Facial features are symmetric. Eyes: Extraocular muscles are intact. Conjunctivae were clear. NECK: Supple without any masses. Trachea midline no deviation. No JVD, CARDIAC: Regular rhythm, regular rate. S1/S2 are heard. No murmurs gallops or rubs. LUNGS: Clear to auscultation bilaterally. No wheeze, rhonchi or rales. No use of accessory muscles on inspiration or expiration. ABDOMEN: Soft, mild tenderness noted throughout the abdomen, pain worse on the left side. Nondistended. Bowel sounds heard in all 4 quadrants. No organomegaly or masses. Negative rebound, negative guarding EXTREMITIES: No edema, pulses are equal bilaterally. No cyanosis or clubbing NEUROLOGY: Mood and affect appear appropriate. Cranial nerves II through XII grossly intact. Moving all extremities, speech is clear Results - Labs CBC & Chem 7: 02/25/18 06:10 02/25/18 06:10 Laboratory Results - last 24 hr 02/24/18 02/24/18 02/24/18 11:01 12:11 16:42 CBC w Diff WBC RBC Hgb Hct MCV MCH MCHC RDW Plt Count MPV Neut % (Auto) Lymph % (Auto) [place] % (Auto) Eos % (Auto) Baso % (Auto) Neut # (Auto) Lymph # (Auto) [place] # (Auto) Eos # (Auto) Baso # (Auto) WBC Differential Differential Comment Sodium Potassium Chloride Carbon Dioxide Anion Gap BUN Creatinine Estimated GFR POC Glucose 130 H 133 H 113 H Random Glucose Calcium 02/24/18 02/25/18 02/25/18 21:11 06:10 06:10 CBC w Diff Auto diff final WBC 7.6 RBC 3.94 L Hgb 11.4 L Hct 35.9 MCV 90.9 MCH 29.0 MCHC 31.9 L RDW 13.9 Plt Count 134 L MPV 11.1 H Neut % (Auto) 82.7 H Lymph % (Auto) 8.0 L [place] % (Auto) 7.7 Eos % (Auto) 1.4 Baso % (Auto) 0.2 Neut # (Auto) 6.3 Lymph # (Auto) 0.6 L [place] # (Auto) 0.6 Eos # (Auto) 0.1 Baso # (Auto) 0.0 WBC Differential . Differential Comment . Sodium 138 Potassium 3.7 Chloride 102 Carbon Dioxide 29.8 Anion Gap 6 BUN 14 Creatinine 1.10 H Estimated GFR 50 L POC Glucose 122 H Random Glucose 129 H Calcium 8.7 - Imaging Impressions Abdomen/Pelvis CT 02/24/18 08:20 CONCLUSION: 1. Marked inflammatory changes about 2 adjacent mid small bowel diverticula indicating small bowel diverticulitis. There is an air-fluid level and debris within one of the diverticulum indicating possible small abscess formation. It measures approximately 1.5 cm in diameter. No evidence of free air or free fluid. 2. Status post cholecystectomy. Assessment and Plan - Assessment (1) Diverticular disease of small intestine Code(s): K57.10 - Diverticulosis of small intestine without perforation or abscess without bleeding Status: Acute (2) Acute kidney injury Code(s): N17.9 - Acute kidney failure, unspecified Status: Acute - Plan 62-year-old female who presented to the hospital because of persistent abdominal pain with associated nausea, vomiting, diarrhea Diverticular abscess of the small bowel -CT scan does show couple small bowel diverticulum, one with air-fluid level suggestive of abscess -Patient will be kept n.p.o. except for meds -Continue IV fluids -Continue on Zosyn for empirical antibiotic coverage -Continue pain control -General surgery consultation for recommendation Acute kidney injury, improved -Likely secondary to dehydration, nausea, vomiting, diarrhea, however chronic kidney disease is also a possibility with the patient having diabetes and hypertension. -Continue monitor renal function -Avoid nephrotoxins Hypertension, hyper lipidemia -Home medication has been continued Diabetes -Accu-Cheks with sliding scale insulin DVT prevention -Subcutaneous heparin
--- NOTE | 2018-02-25 11:20 | P.CONGS ---
[facility] Gen Surgery Consult Note Consult date: 02/25/18 Reason for consult: abdominal pain Narrative: 62 yo F who developed severe abdominal pain, nausea, vomiting, and diarrhea yesterday and presented to [place] ED. She was found to have WBC 11,[address] a/p showing small bowel diverticulitis with possible microperforation/small abscess formation. I reviewed the images and the patient actually has multiple small bowel diverticula in addition to the inflamed area. Her past surgical history includes laparoscopic cholecystectomy and oophorectomy via lower midline incision. She feels significantly improved today as compared to when she presented yesterday. She has only mild pain and is not having nausea. White blood count has normalized. Review of Systems All other systems reviewed negative except as stated in [facility] - History History Provided By: Patient - Medical History Medical History: Medical History (Last Reviewed 02/24/18 @ 13:34 by Alicia Nava RN) Diabetes High cholesterol History of diverticulitis Hypertension - Surgical History Surgical History: Surgical History (Last Reviewed 02/24/18 @ 13:34 by Alicia Nava RN) History of arthroscopic knee surgery Hx laparoscopic cholecystectomy Hx of removal of ovary Hx of tonsillectomy - Family History Family History: Family History (Last Updated 02/24/18 @ 11:49 by NICOLE Pollard) Father History of heart disease History of diabetes mellitus Mother History of heart disease History of diabetes mellitus - Tobacco History Second Hand Smoke Exposure: No Smoking Status: Never smoker - Alcohol History How Often Do You Have a Drink Containing Alcohol: Never - Substance Use History Substance History: No History of Abuse - Travel History Recent Travel in the [place] Within the Last 8 Weeks: No Recent Travel Out of the Country Within the Last 8 Weeks: No - Immunization History Tetanus Immunization: Unsure Hx Influenza Vaccine This Season: No Medications and Allergies Active Medications: Active Medications Acetaminophen (Tylenol) 650 mg PO Q4H PRN PRN Reason: Temp > 100.4 Atorvastatin Calcium (Lipitor) 20 mg PO HS [facility] Last Admin: 02/24/18 22:00 Dose: 20 mg Dextrose (D50w Vial) 50 ml IV.PUSH UNSCH PRN PRN Reason: PER HYPOGLYCEMIA PROTOCOL Escitalopram Oxalate (Lexapro) 15 mg PO DAILY@2100 [facility] Last Admin: 02/24/18 22:00 Dose: 15 mg Glucagon (Glucagon Inj) 1 mg OTHER PRN PRN PRN Reason: for Hypoglycemia Protocol Heparin Sodium (Porcine) (Heparin Inj) 5,000 units SQ Q12HR [facility] Last Admin: 02/25/18 10:21 Dose: 5,000 units Hydrochlorothiazide (Hydrodiuril) 25 mg PO DAILY [facility] Last Admin: 02/25/18 10:21 Dose: 25 mg Lactated Ringer's (Lr 1000 Ml Inj) 1,000 mls @ 100 mls/hr IV.CONT .Q10H [facility] Last Admin: 02/25/18 10:20 Dose: 100 mls/hr Piperacillin/Tazobactam/Dextrose (Zosyn 3.375 Gm Premix) 50 mls @ 100 mls/hr IV.SIG Q6H [facility] Last Admin: 02/25/18 10:20 Dose: 100 mls/hr Insulin Aspart (Novolog Insulin Correctional Sugar Inj) 0 unit SQ ACHS [facility]; Protocol Last Admin: 02/25/18 10:21 Dose: Not Given Lisinopril (Prinivil) 20 mg PO DAILY [facility] Lisinopril (Prinivil) 5 mg PO HS [facility] Miscellaneous (Pill Splitter) 1 each OTHER UNSCH PRN PRN Reason: SEE LABEL COMMENTS Morphine Sulfate (Morphine Inj) 2 mg IV.PUSH Q4H PRN PRN Reason: Pain 6-10 Last Admin: 02/24/18 22:01 Dose: 2 mg Sodium Chloride (Ns Flush) 2 ml IV.FLUSH PRN PRN PRN Reason: FLUSH AFTER USING IV ACCESS Last Admin: 02/24/18 08:37 Dose: 2 ml Temazepam (Restoril) 15 mg PO HS PRN PRN Reason: INSOMNIA Allergies Allergy/AdvReac Type Severity Reaction Status Date / Time phenol Allergy Severe throat Verified 02/24/18 13:34 swelling phenol liquid Allergy Severe throat Verified 02/24/18 13:34 swelling Sulfa (Sulfonamide Allergy Severe Rash, Verified 02/24/18 13:34 Antibiotics) Generalized GLUTERIDE Allergy Severe throat Uncoded 02/24/18 07:55 swelling Home Medications Medication Instructions Recorded Confirmed Type atorvastatin 20 mg PO HS 02/24/18 02/24/18 History escitalopram oxalate [Lexapro] 15 mg PO DAILY 02/24/18 02/24/18 History hydrochlorothiazide 25 mg PO DAILY 02/24/18 02/24/18 History lisinopril 15 mg PO HS 02/24/18 02/24/18 History metformin 1,000 mg PO BID 02/24/18 02/24/18 History potassium chloride 30 meq PO DAILY 02/24/18 02/24/18 History sitagliptin [Januvia] 50 mg PO DAILY 02/24/18 02/24/18 History Exam Vital signs: Vital Signs 02/24/18 12:00 02/24/18 16:00 02/24/18 20:00 Temperature 98.4 F 99.8 F H 99.8 F H Pulse Rate 72 75 69 Respiratory Rate 18 18 20 Blood Pressure 137/78 99/53 L 127/60 Pulse Oximetry 96 96 94 L 02/24/18 23:01 02/25/18 00:00 02/25/18 08:00 Temperature 99 F 98.7 F Pulse Rate 74 76 Respiratory Rate 20 20 18 Blood Pressure 142/70 H 132/65 Pulse Oximetry 94 L 95 Intake & Output 02/24/18 02/25/18 02/25/18 18:59 06:59 18:59 Intake Total 300 / 300 2049 Balance 300 / 300 2049 Weight 100.4 kg 100.9 kg Intake: IV 300 / 300 2049 LR 1000 mL Inj 1,000 ML @ 100 2000 / 2000 mls/hr IV.CONT .Q10H [facility] Rx#: [id number] Cipro 400 MG/200 ML Inj 400 mg 200 / 200 In 200 ml @ 200 mls/hr IV.SIG ONCE ONE Rx#:[id number] Zosyn 3.375 GM Premix 50 ML @ 100 / 100 50 / 50 100 mls/hr IV.SIG Q6H [facility] Rx#: [id number] Oral 0 / 0 0 / 0 Other: # Voids 2 3 Date of Last Bowel Movement 02/24/18 # Bowel Movements 0 Narrative: GENERAL: Awake and alert. No acute distress. Cooperative. HEAD: Normocephalic. Atraumatic. EYES: Pupils equal round and reactive to light bilaterally. No scleral icterus. ENT: Moist oral mucosa. NECK: Trachea midline. CHEST: Lungs clear to auscultation bilaterally with no wheezing or rhonchi. No respiratory distress. CARDIOVASCULAR: Regular rate and rhythm. ABDOMEN: Obese. Lower midline scar. Mild diffuse tenderness and mild distention. No rebound or guarding. EXTREMITIES: No cyanosis or edema. SKIN: Warm, dry, nonjaundiced. Results - Labs 02/25/18 06:10 02/25/18 06:10 Abnormal lab results 02/24/18 02/24/18 02/24/18 Range/Units 12:11 16:42 21:11 RBC (4.00-5.30) mil/mm3 Hgb (11.6-15.3) gm/dL MCHC (32.0-36.0) % Plt Count (150-450) th/mm3 MPV (7.0-11.0) fL Neut % (Auto) (16.0-70.0) % Lymph % (Auto) (9.0-44.0) % Lymph # (Auto) (1.0-4.8) th/mm3 Creatinine (0.50-1.00) mg/dL Estimated GFR (>89) mL/min POC Glucose 133 H 113 H 122 H (68-110) mg/dl Random Glucose (74-106) mg/dL 02/25/18 02/25/18 Range/Units 06:10 06:10 RBC 3.94 L (4.00-5.30) mil/mm3 Hgb 11.4 L (11.6-15.3) gm/dL MCHC 31.9 L (32.0-36.0) % Plt Count 134 L (150-450) th/mm3 MPV 11.1 H (7.0-11.0) fL Neut % (Auto) 82.7 H (16.0-70.0) % Lymph % (Auto) 8.0 L (9.0-44.0) % Lymph # (Auto) 0.6 L (1.0-4.8) th/mm3 Creatinine 1.10 H (0.50-1.00) mg/dL Estimated GFR 50 L (>89) mL/min POC Glucose (68-110) mg/dl Random Glucose 129 H (74-106) mg/dL Diabetes panel 02/25/18 Range/Units 06:10 Sodium 138 (136-145) meq/L Potassium 3.7 (3.5-5.1) meq/L Chloride 102 (98-107) meq/L Carbon Dioxide 29.8 (21.0-32.0) meq/L BUN 14 (7-18) mg/dL Creatinine 1.10 H (0.50-1.00) mg/dL Calcium 8.7 (8.5-10.1) mg/dL Calcium panel 02/25/18 Range/Units 06:10 Calcium 8.7 (8.5-10.1) mg/dL Pituitary panel 02/25/18 Range/Units 06:10 Sodium 138 (136-145) meq/L Potassium 3.7 (3.5-5.1) meq/L Chloride 102 (98-107) meq/L Carbon Dioxide 29.8 (21.0-32.0) meq/L BUN 14 (7-18) mg/dL Creatinine 1.10 H (0.50-1.00) mg/dL Calcium 8.7 (8.5-10.1) mg/dL Adrenal panel 02/25/18 Range/Units 06:10 Sodium 138 (136-145) meq/L Potassium 3.7 (3.5-5.1) meq/L Chloride 102 (98-107) meq/L Carbon Dioxide 29.8 (21.0-32.0) meq/L BUN 14 (7-18) mg/dL Creatinine 1.10 H (0.50-1.00) mg/dL Calcium 8.7 (8.5-10.1) mg/dL All other labs normal. - Imaging CT scan - abdomen: report reviewed, image reviewed CT scan - pelvis: report reviewed, image reviewed Assessment and Plan - Assessment (1) Diverticulitis of small intestine with abscess Code(s): K57.00 - Diverticulitis of small intestine with perforation and abscess without bleeding Status: Acute - Plan The patient has diverticulitis of the small intestine with a small associated abscess. I do not think this represents a Meckel's diverticulum mellitus as she does have numerous other diverticulum of the small bowel. She is improving and I will start full liquids. It is possible she will be able to be discharged home tomorrow. Continue IV Zosyn.
[2018-02-25] MEDS: Lisinopril 20 MG Tablet PO SCH (18:36)
[2018-02-25] MEDS: Escitalopram 10 MG Tablet PO SCH (21:28)
[2018-02-26] MEDS: Piperacil/Tazo 3.375 GM Premix 50 ML IV.SIG SCH ×2 (00:17→05:30)
[2018-02-26] MEDS: Insulin NovoLOG Aspart Correctional Sugar Inj SQ SCH (09:42)
[2018-02-26] MEDS: hydroCHLOROthiazide 25 MG Tablet PO SCH (09:43)
[2018-02-26] MEDS: Lisinopril 20 MG Tablet PO SCH (09:43)
[2018-02-26] MEDS: Heparin - SQ 10,000 UNITS/ML Vial SQ SCH (09:43)
--- NOTE | 2018-02-26 10:20 | P.DS ---
Date of admission: 02/24/18 10:40 Primary care physician: PROVIDER NON STAFF Attending physician on discharge: Raya Kennedy Anticipated date of discharge: 02/26/18 Brief History from admission: 62-year-old female with known history of hypertension, hyperlipidemia , diabetes, history of diverticulitis as a child who presented to the emergency department because of persistent abdominal pain. Patient states that she has normal state of health until yesterday morning after he took a shower. She started developing abdominal pain throughout her entire abdomen. She had nausea , vomiting and then subsequently diarrhea. Patient states that remained throughout the day. She was able to eat some chicken last night, however she still had persistent diarrhea. She indicates the pain was diffuse with worsening over on the left side. She describes the pain as a constant ache with intermittent stabbing type pain which she compared to gas pains. Which the persistent pain is a 4/10 on a pain scale and the intermittent stabbing pain got to an 8/10 on a pain scale. Nothing relieves her pain and because it was persistent she came to emergency department for evaluation. Patient had workup done and found to have a small bowel diverticular abscess and was recommended admission the hospital for further evaluation and management. DS: Diagnosis - Discharge Diagnosis (1) Diverticular disease of small intestine Status: Acute (2) Acute kidney injury Status: Acute DS: Medications - Discharge Medications Prescriptions: levofloxacin [Levaquin] 500 mg PO DAILY #7 tab metronidazole [Flagyl] 500 mg PO TID #21 tab DS: Summary Hospital Course: 62-year-old female with known history of hypertension, diabetes who originally presented the hospital because acute abdominal pain which progressively got worse with abdominal bloating and intractable pain. Patient came to emergency department for evaluation. Patient did undergo CT scan which did show small bowel diverticulum with air-fluid levels suggesting of possible small bowel abscess. Patient was started on antibiotics to include Zosyn. Patient was maintained n.p.o. initially. Patient is tolerating treatment well. Diet was advanced by general surgery yesterday to liquid diet. Patient has not had any recurrent abdominal pain. She is eating well, she had bowel movement this morning which was normal. She has not had any recurrence of pain. Discussed with general surgery who indicated the patient may be discharged home on Levaquin and Flagyl for at least 7 days. He should follow- up in his office within the next 7-10 days. Patient is clinically stable. Patient is in agreement with discharge. We will plan discharge accordingly. - Time Spent with Patient Total time spent providing and/or coordinating discharge services: Greater than 30 minutes - Quality: VTE Deep Vein Thrombosis/Pulmonary Embolism Present on Admission: No Exam Vital signs: Vital Signs 02/25/18 12:00 02/25/18 16:00 02/25/18 20:00 Temperature 99.8 F H 99.5 F 98.3 F Pulse Rate 66 66 67 Respiratory Rate 18 18 20 Blood Pressure 129/63 124/64 118/69 Pulse Oximetry 97 95 95 02/26/18 00:00 02/26/18 08:00 Temperature 98.7 F 97.9 F Pulse Rate 66 61 Respiratory Rate 20 18 Blood Pressure 135/68 131/72 Pulse Oximetry 94 L 96 Intake & Output 02/25/18 02/26/18 02/26/18 18:59 06:59 18:59 Intake Total 1820 / 1820 1390 / 1390 Balance 1820 / 1820 1390 / 1390 Weight 100.8 kg Intake: IV 1100 / 1100 1150 / 1150 LR 1000 mL Inj 1,000 ML @ 100 1000 / 1000 1000 / 1000 mls/hr IV.CONT .Q10H [facility] Rx#: [id number] Zosyn 3.375 GM Premix 50 ML @ 100 / 100 150 / 150 100 mls/hr IV.SIG Q6H [facility] Rx#: [id number] Oral 720 / 720 240 / 240 Other: # Voids 4 4 Date of Last Bowel Movement 02/24/18 # Bowel Movements 0 Narrative: GENERAL: Well-developed, well-nourished, in no acute distress. alert and orientated HEENT: Head is normocephalic without any lesions or masses noted. Facial features are symmetric. Eyes: Extraocular muscles are intact. Conjunctivae were clear. NECK: Supple without any masses. Trachea midline no deviation. No JVD, CARDIAC: Regular rhythm, regular rate. S1/S2 are heard. No murmurs gallops or rubs. LUNGS: Clear to auscultation bilaterally. No wheeze, rhonchi or rales. No use of accessory muscles on inspiration or expiration. ABDOMEN: Soft, nontender. Nondistended. Bowel sounds heard in all 4 quadrants. No organomegaly or masses. Negative rebound, negative guarding EXTREMITIES: No edema, pulses are equal bilaterally. No cyanosis or clubbing NEUROLOGY: Mood and affect appear appropriate. Cranial nerves II through XII grossly intact. Moving all extremities, speech is clear Results Procedures completed during hospitalization: none Labs on day of discharge: Labs from last 24 hours 02/25/18 02/25/18 21:26 18:45 POC Glucose 96 146 H - Impressions ITS Impressions Abdomen/Pelvis CT 02/24/18 08:20 CONCLUSION: 1. Marked inflammatory changes about 2 adjacent mid small bowel diverticula indicating small bowel diverticulitis. There is an air-fluid level and debris within one of the diverticulum indicating possible small abscess formation. It measures approximately 1.5 cm in diameter. No evidence of free air or free fluid. 2. Status post cholecystectomy. Discharge Plan - Discharge Disposition Patient Disposition: 01 Discharge Home - Discharge Condition Condition: Stable - Discharge Order Discharge Orders: Discharge Order (Routine); Ordered 02/26/18 Ordered By: Horace Carroll - Discharge Details Anticipated Discharge Date: 02/26/18 - Physicians Team Primary Care Provider: NON STAFF,PROVIDER Attending Provider: Raya Kennedy
== END 2018-02-26 12:23 | disposition home or self-care (01) ==
LOC: PHED 07:41 → PHEDA 07:41 → PH3 11:30
PROVIDERS: ADMIT Family Medicine; ATTEND Family Medicine